=== PATIENT | male | born 1995 | race Caucasian/White ===

== ENCOUNTER 2023-11-27 16:14 | Emergency (ER) | payer SELFPAY ==
[~2023-11-27] VITALS: Ht 165.1 cm; Wt 72.6 kg
[~2023-11-27 16:14] MED LIST: IBUP600 PO; Penicillin V P500 MG PO
[2023-11-27 16:54] VITALS: BP 158/93
[2023-11-27] MEDS ORDERED: AMOX500 PO (17:37)
[2023-11-27 17:41] LABS: Influenza A, PCR NEGATIVE (NEGATIVE); Influenza B, PCR NEGATIVE (NEGATIVE); Resp Syncytial Virus, PCR NEGATIVE (NEGATIVE); SARS-Cov-2 (COVID-19) PCR, MMC NEGATIVE (NEGATIVE)
== END 2023-11-27 17:42 | disposition home or self-care (01) ==
LOC: ER 16:14
PROVIDERS: Student in an Organized Health Care Education/Training Program
DX: J02.0 Streptococcal pharyngitis (principal); J45.909 Unspecified asthma, uncomplicated; Z79.2 Long term (current) use of antibiotics
CPT/HCPCS: 0241U; 87430; 99283